=== PATIENT | female | born 1940 | race Caucasian/White ===

== ENCOUNTER → 2017-08-25 | Outpatient (CLI) | payer OTHER, BC | LOC: HYPER 06:48 | DX: S81.852D Open bite, left lower leg, subsequent encounter (principal); Z72.89 Other problems related to lifestyle; W55.01XD Bitten by cat, subsequent encounter ==

== ENCOUNTER → 2017-08-31 | Outpatient (CLI) | payer OTHER, BC | LOC: HYPER 06:59 | DX: S80.812D Abrasion, left lower leg, subsequent encounter (principal); L03.116 Cellulitis of left lower limb; H26.9 Unspecified cataract; Z98.49 Cataract extraction status, unspecified eye; Z72.89 Other problems related to lifestyle; W55.03XD Scratched by cat, subsequent encounter ==

== ENCOUNTER → 2017-09-15 | Outpatient (CLI) | payer OTHER, BC | LOC: HYPER 06:48 | DX: L03.116 Cellulitis of left lower limb (principal); R60.0 Localized edema; Z72.89 Other problems related to lifestyle; W55.03XD Scratched by cat, subsequent encounter ==

== ENCOUNTER → 2017-10-15 | Outpatient (CLI) | payer OTHER, BC | LOC: HYPER 06:50 | DX: S81.852D Open bite, left lower leg, subsequent encounter (principal); L03.116 Cellulitis of left lower limb; R60.0 Localized edema; Z72.89 Other problems related to lifestyle; W55.03XD Scratched by cat, subsequent encounter ==

== ENCOUNTER → 2017-10-28 | Outpatient (CLI) | payer OTHER, BC | LOC: HYPER 06:47 | DX: S81.852D Open bite, left lower leg, subsequent encounter (principal); L03.116 Cellulitis of left lower limb; R60.0 Localized edema; Z72.89 Other problems related to lifestyle; W55.03XD Scratched by cat, subsequent encounter ==